=== PATIENT | female | born 1990 | race Two or more races ===

== ENCOUNTER 2016-05-01 12:17 | Outpatient (CLI) | payer OTHER ==
[2016-05-01 13:15] VITALS: BMI 27.4
== END 2016-05-01 13:40 | disposition home or self-care (01) ==
LOC: FBCOUT 12:17 → FBC 12:18 → FBCOUT 13:40
PROVIDERS: ATTEND Obstetrics & Gynecology
DX: O47.9 False labor, unspecified (principal); Z3A.00 Weeks of gestation of pregnancy not specified
CPT/HCPCS: 59025; G0463

== ENCOUNTER 2016-05-06 03:01 | Inpatient (IN) | payer OTHER ==
[2016-05-06] MEDS ORDERED: OXYTOCIN IN LR 500 ML IV ONE ×3 (03:25→09:31)
[2016-05-06] MEDS ORDERED: IV START KIT ONE (03:25)
[2016-05-06] MEDS ORDERED: PUMP TUBING ONE (03:25)
[2016-05-06] MEDS ORDERED: LIDOCAINE 1% (PRES FREE) 30 ML VIAL ONE (03:25)
[2016-05-06] MEDS ORDERED: LIDOCAINE Viscous 2% 15 ML UDCUP ONE (03:25)
[2016-05-06] MEDS ORDERED: LACTATED RINGERS 1,000 ML ONE (03:25)
[2016-05-06] MEDS ORDERED: MINERAL OIL 25 ML BOT ONE (03:25)
[2016-05-06] MEDS ORDERED: OXYTOCIN 10 UNITS/ML VIAL ONE (03:25)
[2016-05-06] MEDS ORDERED: PENICILLIN G POTASSIUM 5 MMU VIAL ONE (03:26)
[2016-05-06 03:29] VITALS: BMI 28.1
[2016-05-06] MEDS ORDERED: LACTATED RINGERS 1,000 ML IV PRN (03:32)
[2016-05-06] MEDS ORDERED: PENICILLIN G POTASSIUM 5 MMU in NS 0.9% (MINI-BAG PLUS) 100 ML IV ONE (03:33)
[2016-05-06] MEDS ORDERED: LACTATED RINGERS 1,000 ML IV SCH (03:45)
[2016-05-06] MEDS ORDERED: EPIDURAL PUMP SET ONE (03:51)
[2016-05-06] MEDS ORDERED: FENTANYL/ROPIVACAINE EPIDURAL 250 ML EP ONE (03:51)
[2016-05-06 03:59] LABS: HEMOGLOBIN 10.5 gm/l (12.0-16.0); MEAN CELL VOLUME 76.6 fl (81.0-99.0); MEAN CORPUSCULAR HEMOGLOBIN 24.4 pg (27.0-31.0); MEAN CORPUSCULAR HGB CONC 31.8 g/dl (33.0-37.0); RED CELL DISTRIBUTION WIDTH 13.9 % (11.5-14.5)
[2016-05-06] MEDS ORDERED: EPIDURAL PROCEDURE TRAY ONE (04:12)
[2016-05-06] MEDS: FENTANYL/ROPIVACAINE EPIDURAL 250 ML EP SCH (04:45)
[2016-05-06] MEDS ORDERED: SODIUM CHLORIDE 0.9% 500 ML IV PRN (04:57)
[2016-05-06] MEDS ORDERED: DIPHENHYDRAMINE HCL 50 MG/1 ML VIAL IV PRN (04:57)
[2016-05-06] MEDS ORDERED: LACTATED RINGERS 500 ML IV PRN (04:57)
[2016-05-06] MEDS ORDERED: EPHEDRINE SULFATE 50 MG/ML 1ML VIAL IV PRN (04:57)
[2016-05-06] MEDS ORDERED: METOCLOPRAMIDE HCL 5 MG/ML 2ML VIAL IV PRN (04:57)
[2016-05-06] MEDS ORDERED: NALBUPHINE HCL 20 MG/ML AMP IV PRN (04:57)
[2016-05-06] MEDS ORDERED: NALOXONE HCL 0.4 MG/ML VIAL IV PRN (04:57)
[2016-05-06] MEDS ORDERED: ONDANSETRON 4 MG/2ML 2 ML VIAL IV PRN (04:57)
--- NOTE | 2016-05-06 05:26 | PCMAN ---
OB Admission Note - History : 3 Term: 1 : 0 Abortions (S&E): 1 Livin Gestational Age (weeks): 41 Days (#/7): 0 Admit Cervical Dilation:: 8 Admit Cervical Effacement (%):: 100 Admit Station:: 0 Admit Presentaton:: cephalic Membrane Status: Bulging Labor Onset (Date): 05/06/16 Labor Onset (Time): 01:00 Contractions: Yes Contraction Frequency:: 2-3 mins - Labs Blood Type: B (+) positive Rubella Status: Immune GBS Status: Positive - Review of Systems +FM, -LOF, +CTX - Physical Exam Psych/Mental Status: Mood/Affect Appropriate Neurological: Grossly Intact, Alert Lungs: Clear to Auscultation Bilaterally Cardiovascular: Regular Rate and Rhythm, Normal S1, Normal S2 Abdomen: Normal Bowel Sounds Genitourinary: Normal Female Genitalia Skin: Normal Color, Warm, Dry, Intact - Problems (1) Qualifiers: Weeks of gestation: 41 weeks Qualifier Code: (Z3A.41) 41 weeks gestation of Status: Acute Code: Z33.1Assessment/Plan: Expectant management. AROM @0515, clear fluid. Expect . GBS + on PCN.
--- NOTE | 2016-05-06 06:46 | PCMDEL ---
Delivery Note - Delivery Delivery (Date): 05/06/16 Delivery (Time): 06:30 Gender: Male Presentation: Cephalic Position: OA Umbilical Cord: 3 Vessel, True Knot Delayed Cord Clamping:: < 1 min 1 Minute Total: 9 5 Minute Total: 9 Placenta:: intact, spontaneous EBL:: 500 Perineum:: 2nd degree and R labial Suture:: 2-0 vicryl Anesthesia/Meds:: epidural Length ROM:: 30 min
[2016-05-06] MEDS ORDERED: BENZOCAINE/MENTHOL 60 APPLIC/BOT TP PRN (06:58)
[2016-05-06] MEDS ORDERED: LANOLIN 50 APPLIC/7G TUBE TP PRN (06:58)
[2016-05-06] MEDS ORDERED: ACETAMINOPHEN 325 MG TABLET PO PRN (06:58)
[2016-05-06] MEDS ORDERED: PENICILLIN G 3 MIL UNIT PREMIX 3 MMU in Premix (D5W) 50 ml 1 EACH IV SCH (07:30)
[2016-05-06] MEDS: IBUPROFEN 800 MG TABLET PO PRN ×2 (08:57→17:09)
[2016-05-06] MEDS: OXYCODONE/ACETAMINOPHEN 5/325 MG TABLET PO PRN ×2 (14:37→21:26)
[2016-05-07] MEDS: IBUPROFEN 800 MG TABLET PO PRN ×2 (03:30→13:48)
[2016-05-07 06:12] LABS: HEMATOCRIT 20.9 % (37.0-47.0)
[2016-05-07 06:23] LABS: HEMOGLOBIN 6.4 gm/l (12.0-16.0)
--- NOTE | 2016-05-07 09:02 | PDOC44 ---
- Subjective Day: 1 Agueda is tired because baby has been fussy. Very little sleep last night. She denies dizziness. She has just light bleeding now. Bleeding occurred mainly with and right after the . Not much since then. Low Hgb was discussed. The possibility of transfusion was reviewed. Reports Pain Tolerable, Reports , Reports Lochia Light - Objective Temp Pulse Resp BP Pulse Ox 98.2 F 82 16 106/54 18 05/07/16 03:00 05/07/16 03:00 05/07/16 03:00 05/07/16 03:00 05/06/16 10:17 Lab Results 05/07/16 05:20 Hgb 6.4 L* D Hct 20.9 L Current Medications Generic Name Dose Route Start Last Admin Trade Name Freq PRN Reason Stop Dose Admin Acetaminophen 325 - 650 mg 05/06/16 06:58 Tylenol PO Q4H PRN Pain (Mild) Benzocaine/Menthol 1 applic 05/06/16 06:58 05/06/16 21:26 Dermoplast TP 1 bot PRN PRN Administration Patient Comfort Docusate Sodium 100 mg 05/06/16 06:58 Colace PO DAILY PRN Comfort Emollient Ointment 1 applic 05/06/16 06:58 05/06/16 21:26 [id number]-I-[id number] TP 1 tube PRN PRN Administration sore nipples Ropivacaine/Fentanyl/NS 250 mls @ 0 mls/hr 05/06/16 04:45 05/06/16 04:45 Fentanyl 2 Mcg/Ml + Ropivacaine 0.125% Ep Bag EP 12 mls/hr EPI HOWARD Administration Protocol Per Protocol Ibuprofen 800 mg 05/06/16 06:58 05/07/16 03:30 Motrin PO 800 mg Q8H PRN Administration Pain (Mild) Oxycodone/Acetaminophen 1 - 2 tab 05/06/16 06:58 05/06/16 21:26 Percocet 5/325 PO 1 tab Q4H PRN Administration Pain (Moderate) - Physical Exam General: Afebrile Psych/Mental Status: Mood/Affect Appropriate, Bonding Well Neurological: Alert, Normal Speech Lungs: Clear to Auscultation Bilaterally Cardiovascular: Regular Rate and Rhythm Fundus: Firm, Below Umbilicus Abdomen: Normal Bowel Sounds Lochia: Light Skin: Warm, Other (Pale; pt appears tired.) - Problems:Assessment/Plan (1) (normal spontaneous vaginal delivery) Status: Acute (2) anemia Status: AcuteAssessment/Plan: Pt is not bleeding excessively now. It is low normal. She seems to be tolerating this level of anemia well so far. We will see how she does today before deciding on transfusion. Disposition: Anticipate DC Home Tomorrow
[2016-05-07] MEDS: PRENATAL VIT/FE FUMARATE/FA 1 TABLET PO SCH (10:35)
[2016-05-07] MEDS: FERROUS SULF (45 Fe) SR 1 EACH TAB.SR PO SCH ×2 (10:36→20:17)
[2016-05-07] MEDS: DOCUSATE SODIUM 100 MG CAPSULE PO PRN (10:36)
[2016-05-07] MEDS: FENTANYL/ROPIVACAINE EPIDURAL 250 ML EP SCH (14:56)
[2016-05-07] MEDS: LACTATED RINGERS 1,000 ML IV SCH (14:57)
--- NOTE | 2016-05-07 19:03 | PDOC36 ---
Provider Note Subject: Progress note Note: S: Pt has had a good day. She showered. No dizziness, no headache, no SOB, just fatigue. Agueda denies concerns. Bleeding is minimal. O: VS reviewed normal. Pt's color is improved. No exam indicated. Imp: Pt tolerating anemia well. Recovering from vag normally. Plan: Re-check CBC in AM. Plan for dc tomorrow.
[2016-05-07] MEDS: OXYCODONE/ACETAMINOPHEN 5/325 MG TABLET PO PRN (20:17)
[2016-05-08 06:37] LABS: MEAN CELL VOLUME 78.7 fl (81.0-99.0); MEAN CORPUSCULAR HEMOGLOBIN 24.9 pg (27.0-31.0); MEAN CORPUSCULAR HGB CONC 31.6 g/dl (33.0-37.0); RED CELL DISTRIBUTION WIDTH 14.2 % (11.5-14.5)
[2016-05-08 06:49] LABS: HEMATOCRIT 19.6 % (37.0-47.0); HEMOGLOBIN 6.2 gm/l (12.0-16.0)
[2016-05-08 07:59] VITALS: BP 108/68
[2016-05-08] MEDS: IBUPROFEN 800 MG TABLET PO PRN (08:04)
[2016-05-08] MEDS: FERROUS SULF (45 Fe) SR 1 EACH TAB.SR PO SCH (09:16)
[2016-05-08] MEDS: PRENATAL VIT/FE FUMARATE/FA 1 TABLET PO SCH (09:16)
[2016-05-08] MEDS: DOCUSATE SODIUM 100 MG CAPSULE PO PRN (09:17)
--- NOTE | 2016-05-08 11:25 | PDOC39B ---
Hospital Course: ADMIT DATE: 05/06/16 DISCHARGE DATE: 05/08/16 ADMISSION DIAGNOSES: term , labor PROCEDURES: normal vaginal delivery HISTORY OF PRESENT ILLNESS: 25 year old G3 T1 L1 at 41 weeks 0 days presenting with labor. HOSPITAL COURSE: The patient had a vaginal delivery of baby Male, 8lbs 8oz, 9/9 apgars. Pt did well but did have a hgb=6.4. The next day hgb=6.2. Pt denies any symptoms of CP, SOB, dizziness. As pt was asymptomatic no transfusion was given. By day of discharge the patient is ambulating, eating, voiding, and passing flatus without difficulty. Pain is controlled and lochia is appropriate. She is []. Pt to be discharged with iron, and motrin. Pt will f/u with Dr. Antonio in 2weeks. - Physical Exam Vital Signs: Temp Pulse Resp BP Pulse Ox 97.6 F 93 16 108/68 18 05/08/16 07:51 05/08/16 07:51 05/08/16 07:51 05/08/16 07:51 05/06/16 10:17 - Discharge Plan Prescriptions: Ibuprofen [Motrin] 800 mg PO Q6H PRN #30 tablet PRN Reason: Pain FERROUS SULFATE (65 Fe) [IRON FERROUS SULFATE 325 MG TABLET (SHF)] 325 mg PO BID #60 tab Follow-Up: Leroy Antonio MD [Staff Physician] - In 2 weeks
[2016-05-08] MEDS ORDERED: LACTATED RINGERS 1,000 ML ONE (18:15)
== END 2016-05-08 12:35 | disposition home or self-care (01) | DRG 775 ==
LOC: FBC 03:01 → FBCOUT 03:01 → FBC 03:31
PROVIDERS: ADMIT Obstetrics & Gynecology; ATTEND Obstetrics & Gynecology
PROC: 10E0XZZ Delivery of Products of Conception, External Approach (ICD-10-PCS; principal; 2016-05-06)
PROC: 0KQM0ZZ Repair Perineum Muscle, Open Approach (ICD-10-PCS; 2016-05-06)
DX: O48.0 Post-term pregnancy (principal); O99.824 Streptococcus B carrier state complicating childbirth; O69.2XX0 Labor and delivery complicated by other cord entanglement, with compression, not applicable or unspecified; O70.1 Second degree perineal laceration during delivery; O90.81 Anemia of the puerperium; D64.9 Anemia, unspecified; Z37.0 Single live birth; Z3A.41 41 weeks gestation of pregnancy